=== PATIENT | female | born 1945 | race Caucasian/White ===

== ENCOUNTER → 2021-08-15 | Day surgery (SDC) | payer OTHER ==
[~2021-08-15] VITALS: Ht 149.9 cm; Wt 68.0 kg
[~2021-08-15] MED LIST: ALLOPURINOL 10100 M1 PO; ASA81BEC PO; ATORVASTATIN CA80 MG PO; CARVEDILOL12.5 MG PO; ELIQUIS2.5 MG PO; EZETIMIBE10 MG PO; FLECAINIDE ACET50 M1 PO; LETROZOLE2.5 MG PO; LEVOTHYROXINE100 MCG PO; NORVASC5 MG PO
--- NOTE | ~2021-08-15 | O ---
[facility] [place] [address] OPERATIVE REPORT Name: KURT ERAZO Room #: REG [facility].#: [id number] Admission: 08/15/21 Attend Phys: Dee Crook, Discharge: Date of : 49 Report #: [id number] THIS REPORT FOR: cc: PAPO KOENIG Physician not on staff Dee Crook MD ~ DATE OF SERVICE: 08/15/2021 Orthopedic Operative Note DATE OF SURGERY: 08/15/2021 PREOPERATIVE DIAGNOSIS: Right carpal tunnel syndrome. POSTOPERATIVE DIAGNOSIS: Right carpal tunnel syndrome. PROCEDURE PERFORMED: Right endoscopic carpal tunnel release. SURGEON: Dee Crook MD TYPE OF ANESTHESIA: General mask anesthesia. ESTIMATED BLOOD LOSS: Minimal. TOURNIQUET TIME: 8 minutes. COMPLICATIONS: None. CONDITION: Stable. DISPOSITION: To the recovery room. INDICATIONS: The patient is a 75-year-old female with the above-mentioned diagnosis. She elects for operative treatment. The risks, benefits, alternatives and complications were discussed including, but not limited to infection, damage to vessels and nerves, incomplete relief or worsening of any symptoms. Informed consent was obtained. The correct extremity was identified and labeled by myself after verbal confirmation of the patient as well as visual confirmation and signed informed consent. DESCRIPTION OF PROCEDURE: The patient was brought to the operating room and placed in a supine position. A forearm tourniquet was placed over padding. The right lower extremity was sterilely prepped and draped in the usual fashion. A final timeout was taken to verify the correct patient, the operative procedure, operative site, all concurred. The right upper extremity was elevated, exsanguinated and the tourniquet inflated. The entire procedure was done [facility] [address] [place] [address] OPERATIVE REPORT Name: KURT ERAZO Room #: REG [facility] Armand#: [id number] Admission: 08/15/21 Attend Phys: Dee Crook, Discharge: Date of : 49 Report #: [id number] through a 3.5 x loupe magnification. Next, a transverse incision was made a few millimeters proximal to the distal wrist crease in line with the ulnar border of the palmaris longus tendon. Dissection was carried down through subcutaneous tissue with tenotomy scissors. The antebrachial fascia was identified and incised. It was then incised for a few millimeters proximal. Next, an oblique incision was made at the distal edge of the carpal tunnel. The fat was elevated off the fascia. The fascia was carefully incised. Next, a Odessa elevator was placed through the carpal tunnel and any synovial tissue was elevated off the undersurface of the transverse carpal ligament. Next, a blunt trocar and cannula was inserted with the wrist in maximal extension and digital compression distally. The blunt trocar was removed. The camera was inserted and the nice transverse fibers of the undersurface of the transverse carpal ligament was identified. The hook blade was brought in distally and the transverse carpal ligament transected from the antebrachial fascia of the forearm all the way through the fat in the palm. The nerve looked to be in excellent condition. The instrumentation was released, while visualizing the cut ends of the transverse carpal ligament. Each wound was explored. The release was all the way from the antebrachial fascia of the forearm all the way through the fat in the palm. The nerve looked to be in excellent condition. A Odessa elevator was placed through the carpal tunnel and no remnants of the transverse carpal ligament remained. The wounds were thoroughly irrigated. Skin was closed with 4-0 nylon suture. Subcutaneous tissue was infiltrated with approximately 5 mL of 0.25% Marcaine. She was placed in a bulky dressing. All fingers were pink with brisk capillary refill at the conclusion of case. All sponge and needle counts were correct. The patient was transferred to postoperative recover room in stable condition. By: 40 10 Dee Crook MD /lesly
[2021-08-15 14:59] VITALS: BP 165/73
[2021-08-15 17:26] VITALS: BP 165/73
== END | disposition home or self-care (01) ==
LOC: OR 10:24
PROVIDERS: ATTEND Orthopaedic Surgery Hand Surgery
DX: G56.01 Carpal tunnel syndrome, right upper limb (principal); I12.9 Hypertensive chronic kidney disease with stage 1 through stage 4 chronic kidney disease, or unspecified chronic kidney disease; N18.30 Chronic kidney disease, stage 3 unspecified; I48.91 Unspecified atrial fibrillation; M10.9 Gout, unspecified; E78.5 Hyperlipidemia, unspecified; E03.9 Hypothyroidism, unspecified; Z98.890 Other specified postprocedural states; Z79.899 Other long term (current) drug therapy; Z20.822 Contact with and (suspected) exposure to COVID-19; Z85.3 Personal history of malignant neoplasm of breast; Z90.49 Acquired absence of other specified parts of digestive tract; Z98.51 Tubal ligation status; Z98.41 Cataract extraction status, right eye; Z98.42 Cataract extraction status, left eye; Z96.651 Presence of right artificial knee joint; Z96.641 Presence of right artificial hip joint; Z95.0 Presence of cardiac pacemaker; Z88.2 Allergy status to sulfonamides
CPT/HCPCS: 50010; 50101; 50386; 56526; 56969; 57006; 57091; 57178; 62110; 62900; 70005